=== PATIENT | female | born 1980 | race Caucasian/White ===

== ENCOUNTER 2019-11-17 16:53 | Observation (INO) ==
[2019-11-17] MEDS ORDERED: 0.9 % Sodium Chloride 1,000 ML IVC ONE (17:58)
[2019-11-17] MEDS ORDERED: Ondansetron 4 MG/2 ML VIAL IVP ONE (17:58)
[2019-11-17] MEDS ORDERED: *HR* FentaNYL (PF) 100 MCG/2 ML VIAL IVP ONE ×2 (17:58→19:08)
[2019-11-17 18:40] LABS: Basophils % 0.2 %; Eosinophils % 0.2 %; Hematocrit 39.9 % (35.3-44.9); Hemoglobin 13.7 g/dL (11.5-15.4); Immature Granulocytes % 0.4 % (0-4); Lymphocytes # 0.7 K/mcL (0.6-4.6); Mean Corpuscular HGB Conc 34.3 g/dL (31.6-35.5); Mean Corpuscular Volume 87.3 fL (83.0-100.0); Mean Platelet Volume 10.7 fL (9.4-12.4); Monocytes # 0.6 K/mcL (0.0-1.3); Monocytes % 7.4 %; Neutrophils # 6.8 K/mcL (1.6-8.9); Platelet Count 234 K/mcL (140-400); Red Blood Count 4.57 M/mcL (3.82-4.97); Red Cell Distribution Width 12.4 % (11.5-14.5); Segmented Neutrophils % 83.8 %; White Blood Count 8.1 K/mcL (4.3-11.1)
[2019-11-17 18:45] LABS: INR 1.3; Prothrombin Time 14.2 Seconds (9.4-12.1)
[2019-11-17 18:48] LABS: Activated Partial Thrombo Time 28.8 Seconds (26.0-36.0)
[2019-11-17 19:02] LABS: BUN/Creatinine Ratio 11 (6-26); Blood Urea Nitrogen 8 mg/dL (6-20); Calcium 9.4 mg/dL (8.6-10.3); Carbon Dioxide 25 mEq/L (23-29); Chloride 101 mEq/L (98-107); Glucose 95 mg/dL (70-105); Osmolality,Calculated 280 (280-300); Potassium 3.7 mEq/L (3.5-5.1); Sodium 136 mEq/L (136-145); Troponin I < 0.03 ng/mL (< 0.04); eGFR For African Americans > 60 (> 60); eGFR For Non-African Americans > 60 (> 60)
[2019-11-17 19:08] LABS: Lipase 33 Units/L (11-82)
[2019-11-17] MEDS ORDERED: *HR* LORazepam 2 MG/ML VIAL IVP ONE (19:08)
[2019-11-17] MEDS ORDERED: Aspirin 325 MG TABLET PO ONE (19:16)
[2019-11-17 19:28] LABS: Bilirubin,Urine Negative (Negative); Blood,Urine Small (Negative); Clarity,Urine Cloudy (Clear); Color,Urine Yellow (Yellow); Glucose,Urine (UA) Normal (Normal); Ketones,Urine Negative (Negative); Leukocyte Esterase,Urine Negative (Negative); Nitrite,Urine Negative (Negative); Protein,Urine Negative (Neg-Trace); Specific Gravity,Urine 1.011 (1.010-1.025); Urobilinogen,Urine Normal (Normal)
[2019-11-17 19:30] LABS: Bacteria,Urine Few per hpf (None-Few); Hyaline Casts,Urine None Seen per lpf (None-Few); Squamous Epithelial Cell,Urine Many per lpf (None-Few); WBC,Urine 0-3 per hpf (0-3)
[2019-11-17] MEDS ORDERED: Naloxone 0.4 MG/ML INJ IVP PRN (23:56)
[2019-11-18] MEDS: *HR* OxyCODONE Immed Rel 5 MG TABLET PO PRN ×3 (00:18→15:11)
[2019-11-18] MEDS: 0.9 % Sodium Chloride 1,000 ML IVC SCH ×2 (04:22→17:18)
[2019-11-18 06:47] LABS: Hematocrit 36.3 % (35.3-44.9); Hemoglobin 12.4 g/dL (11.5-15.4); Mean Corpuscular HGB Conc 34.2 g/dL (31.6-35.5); Mean Corpuscular Volume 87.9 fL (83.0-100.0); Mean Platelet Volume 10.5 fL (9.4-12.4); Platelet Count 202 K/mcL (140-400); Red Blood Count 4.13 M/mcL (3.82-4.97); Red Cell Distribution Width 12.6 % (11.5-14.5); White Blood Count 4.5 K/mcL (4.3-11.1)
[2019-11-18 07:12] LABS: Albumin 3.7 g/dL (3.5-5.7); Albumin/Globulin Ratio 1.5 (1.1-2.2); Bilirubin,Direct 0.1 mg/dL (0.0-0.2); Bilirubin,Indirect 0.3 mg/dL (0.0-1.0); Bilirubin,Total 0.4 mg/dL (0.3-1.0); Globulin 2.4 g/dL (2.4-3.5); Total Protein 6.1 g/dL (6.4-8.9)
[2019-11-18 07:14] LABS: BUN/Creatinine Ratio 8 (6-26); Blood Urea Nitrogen 6 mg/dL (6-20); Calcium 8.6 mg/dL (8.6-10.3); Carbon Dioxide 25 mEq/L (23-29); Chloride 105 mEq/L (98-107); Chol/HDL Ratio 5.1 (0-4.9); Cholesterol 172 mg/dL (< 200); Glucose 91 mg/dL (70-105); HDL Cholesterol 34 mg/dL (40-59); LDL Cholesterol,Calculated 122 mg/dL (0-99); Magnesium 1.8 mg/dL (1.6-2.6); Osmolality,Calculated 283 (280-300); Phosphorous 3.4 mg/dL (2.7-4.5); Potassium 3.6 mEq/L (3.5-5.1); Sodium 138 mEq/L (136-145); Triglycerides 78 mg/dL (< 150); Troponin I < 0.03 ng/mL (< 0.04); eGFR For African Americans > 60 (> 60); eGFR For Non-African Americans > 60 (> 60)
[2019-11-18] MEDS: Ondansetron 4 MG/2 ML VIAL IVP PRN (17:18)
[2019-11-18] MEDS: Pantoprazole 40 MG VIAL IVP SCH (17:18)
[2019-11-18] MEDS ORDERED: *HR* Promethazine 25 MG/ML VIAL IVP ONE (20:04)
[2019-11-18] MEDS: Acetaminophen 325 MG TABLET PO PRN (20:35)
[2019-11-19] MEDS: 0.9 % Sodium Chloride 1,000 ML IVC SCH ×2 (01:30→09:55)
[2019-11-19 02:01] LABS: Basophils % 0.4 %; Eosinophils % 0.6 %; Hematocrit 37.1 % (35.3-44.9); Hemoglobin 12.5 g/dL (11.5-15.4); Immature Granulocytes % 0.4 % (0-4); Lymphocytes # 1.2 K/mcL (0.6-4.6); Lymphocytes % 24.9 %; Mean Corpuscular HGB Conc 33.7 g/dL (31.6-35.5); Mean Corpuscular Hemoglobin 29.6 pg (28.0-33.3); Mean Corpuscular Volume 87.7 fL (83.0-100.0); Mean Platelet Volume 11.1 fL (9.4-12.4); Monocytes # 0.4 K/mcL (0.0-1.3); Monocytes % 8.2 %; Neutrophils # 3.2 K/mcL (1.6-8.9); Platelet Count 222 K/mcL (140-400); Red Blood Count 4.23 M/mcL (3.82-4.97); Red Cell Distribution Width 12.6 % (11.5-14.5); Segmented Neutrophils % 65.5 %; White Blood Count 4.9 K/mcL (4.3-11.1)
[2019-11-19 02:22] LABS: BUN/Creatinine Ratio 8 (6-26); Blood Urea Nitrogen 5 mg/dL (6-20); Calcium 8.4 mg/dL (8.6-10.3); Carbon Dioxide 26 mEq/L (23-29); Chloride 106 mEq/L (98-107); Glucose 92 mg/dL (70-105); Osmolality,Calculated 281 (280-300); Potassium 3.8 mEq/L (3.5-5.1); Sodium 137 mEq/L (136-145); eGFR For African Americans > 60 (> 60); eGFR For Non-African Americans > 60 (> 60)
[2019-11-19] MEDS: Pantoprazole 40 MG VIAL IVP SCH (09:45)
[2019-11-19] MEDS: *HR* HYDROcodone/Acet 5/325 mg TABLET PO PRN ×3 (09:51→23:01)
[2019-11-19] MEDS: Sucralfate 1 GM TABLET PO SCH ×3 (12:28→22:58)
[2019-11-19] MEDS: Acetaminophen 325 MG TABLET PO PRN (15:13)
[2019-11-19] MEDS: Ondansetron 4 MG/2 ML VIAL IVP PRN (18:24)
[2019-11-19] MEDS: Ringers Solution, Lactated 1,000 ML IVC SCH (18:42)
[2019-11-19] MEDS: *HR* Heparin 5,000 UNIT/ML VIAL SQ SCH (18:43)
[2019-11-19] MEDS: *HR* OxyCODONE Immed Rel 5 MG TABLET PO PRN (20:09)
[2019-11-20] MEDS: Ringers Solution, Lactated 1,000 ML IVC SCH (02:25)
[2019-11-20] MEDS: *HR* Heparin 5,000 UNIT/ML VIAL SQ SCH (06:08)
[2019-11-20 07:00] LABS: BUN/Creatinine Ratio 8 (6-26); Blood Urea Nitrogen 5 mg/dL (6-20); Calcium 8.5 mg/dL (8.6-10.3); Carbon Dioxide 28 mEq/L (23-29); Chloride 102 mEq/L (98-107); Glucose 94 mg/dL (70-105); Lipase 20 Units/L (11-82); Osmolality,Calculated 283 (280-300); Potassium 3.8 mEq/L (3.5-5.1); Sodium 138 mEq/L (136-145); eGFR For African Americans > 60 (> 60); eGFR For Non-African Americans > 60 (> 60)
[2019-11-20] MEDS: Ondansetron 4 MG/2 ML VIAL IVP PRN (07:45)
[2019-11-20] MEDS ORDERED: Ringers Solution, Lactated 1,000 ML IVC SCH (08:00)
[2019-11-20] MEDS ORDERED: *HR* HYDROcodone/Acet 5/325 mg TABLET PO PRN (08:02)
[2019-11-20] MEDS ORDERED: Propofol 500 MG/50 ML INFUS..BTL ONE (08:37)
[2019-11-20] MEDS ORDERED: Lidocaine -MPF 2% 2 ML VIAL ONE (08:37)
[2019-11-20] MEDS: Sucralfate 1 GM TABLET PO SCH ×2 (08:39→11:43)
[2019-11-20] MEDS ORDERED: Isovue-370 500 ML BOTTLE IVP ONE (11:18)
[2019-11-20 11:33] VITALS: BP 101/64
[2019-11-20] MEDS: Pantoprazole 40 MG VIAL IVP SCH (11:44)
== END 2019-11-20 17:15 | disposition home or self-care (01) ==
LOC: CDU 16:53 → EMEROOARM 16:53 → SUATTDRO 21:33 → CDU 22:36 → 3BNU 11-18 15:28
PROVIDERS: ADMIT Family Medicine; ATTEND Internal Medicine
PROC: ENDOEBX (2019-11-20 08:00)